=== PATIENT | female | born 1985 | race Caucasian/White ===

== ENCOUNTER 2018-04-13 03:46 | Emergency (ER) | payer BC ==
[~2018-04-13] VITALS: Ht 175.3 cm; Wt 138.3 kg
[2018-04-13 05:37] VITALS: BP 151/94
== END 2018-04-13 05:39 | disposition home or self-care (01) ==
LOC: EME 03:46
DX: R22.41 Localized swelling, mass and lump, right lower limb (principal); Z86.718 Personal history of other venous thrombosis and embolism; Z87.891 Personal history of nicotine dependence
CPT/HCPCS: 93971; 99281; 99283